=== PATIENT | female | born 1995 | race Caucasian/White ===

== ENCOUNTER 2022-10-31 09:54 | Emergency (ER) | payer BC, SELFPAY ==
--- NOTE | ~2022-10-31 | XR_ITS ---
EXAMINATION: XR thoracic spine 3V DATE: 10/31/2022 11:16 INDICATION: Mid back pain TECHNIQUE: One AP, lateral and lateral swimmer's views of the thoracic spine were obtained. COMPARISON: None. FINDINGS: Alignment is normal. Minimal anterior wedging at T7 and T8. Mild disc height loss with small endplate osteophytes at a few levels in the mid and lower thoracic spine. Visualized portions of the lungs ar e clear. No pleural effusion or pneumothorax. Heart size is normal. IMPRESSION: 1. Mild thoracic spondylosis with minimal anterior wedging at T7 and T8. Reviewed, dictated and finalized at location A.
[2022-10-31 09:59] VITALS: BP 122/71; PULSE 80; RESP 20; TEMP 36.5; O2SAT 100
--- NOTE | 2022-10-31 10:50 | ED.BACK ---
HPI - Back Pain/Injury General Chief Complaint: Back Pain/Injury Stated Complaint: thoracic back pain - pinched nerve Time Seen by Provider: 10/31/22 10:17 Source: patient Mode of arrival: ambulatory Limitations: no limitations History of Present Illness HPI Narrative: This is a 27-year-old female that presents to the emergency department for mid back pain present since this morning. No recent injuries or trauma. The pain is worse with movement and relieved with rest. She took Tylenol this morning with little relief. Reports she was recently on a flight and thinks that her back got stiff from that. Denies fever, chest pain, shortness of breath, exogenous estrogen use, or lower extremity edema. Related Data Allergies Allergy/AdvReac Type Severity Reaction Status Date / Time No Known Allergies Allergy Verified 10/31/22 09:55 Review of Systems Review of Systems: CONSTITUTIONAL: Denies fever CARDIOVASCULAR: Denies chest pain, or edema. RESPIRATORY: Denies dyspnea. SKIN: Denies rash MUSCULOSKELETAL: Reports back pain, joint pain, and myalgia. NEUROLOGIC: Denies numbness, or weakness. All systems reviewed & are unremarkable except as noted in HPI and below PMFSH Past Medical History Medical History Anxiety Surgical History Surgical History H/O wisdom tooth extraction Family History Family History Father Diabetes mellitus Hypertension Depression Heart disease Mother Hypertension Depression Heart disease Social History Social History Smoking status: Never smoker Alcohol intake: never Substance use: never Living arrangements: alone Occupation/Education: occupation Agree to blood products: Yes Exam Narrative: GENERAL: Well-appearing, well-nourished, and in no acute distress. HEAD: Normocephalic, atraumatic. EYES: EOMI. CHEST: Clear to auscultation. No respiratory distress. No wheezes rales or rhonchi HEART: Regular rate and rhythm. No murmur heard. Normal peripheral pulses. BACK: No midline spinal tenderness EXTREMITIES: Normal range of motion. No edema. Strength equal in bilateral upper and lower extremities (5/5) SKIN: Warm, dry, no rash. NEURO: No focal deficits. Alert and oriented x3. PSYCH: Normal mood and affect Course Vital Signs Vital signs: Vital Signs Temperature 97.7 F 10/31/22 09:59 Pulse Rate 80 10/31/22 09:59 Respiratory Rate 20 10/31/22 09:59 Blood Pressure 122/71 10/31/22 09:59 Pulse Oximetry 100 10/31/22 09:59 Oxygen Delivery Room Air 10/31/22 09:59 Temperature 97.7 F 10/31/22 09:59 Pulse Rate 80 10/31/22 09:59 Respiratory Rate 20 10/31/22 09:59 Blood Pressure 122/71 10/31/22 09:59 Pulse Oximetry 100 10/31/22 09:59 Oxygen Delivery Room Air 10/31/22 09:59 MDM - Back Pain/Injury MDM Narrative Medical decision making narrative: Patient presents to the emergency department for mid back pain present since this morning. Reports she had been on a flight and thought this caused her to get stiff. X-ray of her thoracic spine shows mild thoracic spondylosis with minimal anterior wedging at T7 and T8. Patient given dose of Valium and Toradol with improvement. Her pain does seem very musculoskeletal in nature. She is neurologically intact. I do not suspect PE or cardiopulmonary issue at this time. Her heart rate and oxygen saturation are normal. She is not on any exogenous estrogen. Patient instructed to rest, ice and take [id number] pain medication as needed. Will be prescribed muscle relaxer as needed for pain. She is to follow-up with her primary provider. She was given warnings to return to the ER Differential Diagnosis Differential diagnosis: Likely thoracic back
[2022-10-31] MEDS: KETOROLAC 30 MG/ML VIAL (*BKC) IM (11:19)
[2022-10-31] MEDS: diazePAM INJ (*CRX) 10 MG/2 ML SYRINGE 5 MG IM (11:19)
[2022-10-31] MEDS: ACETAMINOPHEN 325 MG TABLET 650 MG PO (12:18)
[2022-10-31] MEDS: HYDROcodone/acetaminophen (*CRX) 5-325 MG TABLET 1 TAB PO (12:18)
--- NOTE | 2022-10-31 13:01 | PC.NURSE ---
Patient states she is unable to get up to be discharged due to pain being too bad . Elizabet made aware and will go speak with patient.
[2022-10-31 13:02] VITALS: BP 134/90; PULSE 66; RESP 15; O2SAT 100
== END 2022-10-31 14:01 | disposition home or self-care (01) ==
PROVIDERS: Emergency Provider Physician Assistant; PCP Physician Assistant Medical
DX: M54.6 Pain in thoracic spine (principal); M47.814 Spondylosis without myelopathy or radiculopathy, thoracic region
CPT/HCPCS: 72072; 96372; 99284; A9270; J1885; J3360

== ENCOUNTER 2025-01-19 10:44 | Emergency (ER) | payer BC, SELFPAY ==
--- NOTE | 2025-01-19 10:48 | ED.URI ---
HPI - URI/Sore Throat General Chief Complaint: Upper Respiratory Infection Stated Complaint: Sinus Infection Time Seen by Provider: 01/19/25 11:00 Source: patient Mode of arrival: ambulatory Limitations: no limitations History of Present Illness HPI Narrative: Layla is a 29-year-old female patient presenting to the clinic today with complaints of a possible sinus infection x4 days. She reports she has nasal drainage, cough, sore throat, left anterior swollen lymph node, and chills. Has taken cough drops to help alleviate her symptoms. Denies any known fever but has felt feverish. Denies any chest pain or shortness of breath. Rates pain 10/29 currently Related Data Allergies Allergy/AdvReac Type Severity Reaction Status Date / Time amoxicillin Allergy Intermediate Swelling Verified 01/19/25 10:58 of Lip/Tongue/Throat Review of Systems Review of Systems: Pertinent positives per HPI. Patient denies any rash, headache, visual changes, dizziness, shortness of breath, chest pain, palpitations, nausea, vomiting, diarrhea, constipation, abdominal pain, or any urinary issues. [facility] Past Medical History Medical History Anxiety Surgical History Surgical History H/O wisdom tooth extraction Family History Family History Father Diabetes mellitus Hypertension Depression Heart disease Mother Hypertension Depression Heart disease Social History Social History Smoking status: Never smoker Alcohol intake: never Substance use: never Living arrangements: alone Occupation/Education: occupation Agree to blood products: Yes Comments At the time of my signature, I reviewed and agree with the nursing past medical, surgical, social, and family history. There is no relevant family history pertinent to the patient complaint. Exam Narrative: General: Well-developed, obese, in no apparent distress Head: Normocephalic, atraumatic Eyes: Pupils equally round and reactive to light bilaterally, EOM intact, sclera and conjunctive clear, no discharge, lids normal Ears: TMs intact and congested, ear canals clear, no drainage, grossly hearing normal. Nose: Nares patent, clear nasal discharge, mild inflammation, no sinus tenderness. Mouth: Oral pharynx red with mild tonsillar without lesions or masses, good dentition, MMM. Postnasal drip Neck: Supple, trachea midline, enlargement of left anterior cervical nodes, no thyroid masses or goiter palpable. Cardio: Regular rate and rhythm, s1 and s2 normal, no murmur appreciated. Resp: Clear to auscultation bilaterally, no rhonchi, rales, wheezing or rubs Course Course Emergency Course: Portions of this record may have been created with voice recognition software. Level of Care: Express Care Visit Vital Signs Vital signs: Vital Signs Temperature 36.9 C 01/19/25 10:53 Pulse Rate 101 H 01/19/25 10:53 Respiratory Rate 20 01/19/25 10:53 Blood Pressure 153/106 H 01/19/25 10:53 Pulse Oximetry 100 01/19/25 10:53 Oxygen Delivery Room Air 01/19/25 10:53 Temperature 36.9 C 01/19/25 10:53 Pulse Rate 101 H 01/19/25 10:53 Respiratory Rate 20 01/19/25 10:53 Blood Pressure 153/106 H 01/19/25 10:53 Pulse Oximetry 100 01/19/25 10:53 Oxygen Delivery Room Air 01/19/25 10:53 Vital signs reviewed MDM - URI/Sore Throat MDM Narrative Medical decision making narrative: At the time of visit patient is resting comfortably on the exam table. Patient appears to be nontoxic. Complaints of a possible sinus infection x4 days. She reports she has nasal drainage, cough, sore throat, left anterior swollen lymph node, and chills. Has taken cough drops to help alleviate her symptoms. Denies any known fever but has felt feverish. Denies any chest pain or shortness of breath. Rates pain 7/10 currently. On exam patient has bilateral TMs intact and congested, clear nasal drainage with oral pharynx red with mild tonsillar enlargement and postnasal drip, left anterior cervical lymphadenopathy, lung sounds are clear, heart rates regular rate and rhythm. COVID, flu, and strep test were ordered. Labs: COVID, influenza, and strep test were all negative. We will send strep for culture. Plan: I suspect patient has URI/pharyngitis/viral syndrome. Work note was given. Supportive measures were discussed with the patient and they voiced understanding discharge instructions and agrees to treatment plan. Return precautions reviewed Differential Diagnosis Differential diagnosis: Likely upper respiratory infection, otitis media, sinusitis, viral infection, bronchitis, influenza, pharyngitis and other (COVID) Lab Data Labs: Lab Results 01/19/25 01/19/25 Range/Units 11:12 11:17 POC Influenza A Ag Negative (Negative) POC Influenza B Ag Negative (Negative) POC SARS CoV-2 Ag Negative (Negative) POC Grp A Strep Screen Negative (Negative) Discharge Plan Discharge Clinical Impression: Viral infection Upper respiratory infection Qualifiers: URI type: unspecified URI Qualified Code(s): J06.9 - Acute upper respiratory infection, unspecified Pharyngitis Qualifiers: Pharyngitis/tonsillitis etiology: unspecified etiology Qualified Code(s): J02.9 - Acute pharyngitis, unspecified Patient Disposition: Home Condition: Stable Instructions: Antibiotic Form, Pharyngitis (ED), Viral Syndrome (ED), Cold Symptoms (ED) Additional Instructions: COVID, influenza, and strep test were all negative in the clinic today. We will send strep for culture. If strep comes back positive we will contact him place you on antibiotics at that time Increase fluids and stay well hydrated May take Tylenol or motrin as directed on bottle for pain/fever May use Flonase 1 spray in each nare daily May take OTC antihistamines such as Zyrtec or Claritin daily as directed on bottle May apply Vicks vapor rub to chest to open sinuses Sinus rinses for congestion Cepacol spray, cough drops, throat lozenges, warm tea with honey/lemon, gargle salt water to soothe throat BRAT diet for diarrhea Clear liquids x 24 hours then advance as tolerated for nausea/vomiting Go to the ED if you develop a worsening in your condition- high fever not controlled by Tylenol or Motrin, dehydration, weakness, lethargy, shortness of breath, or chest pain. Follow up with your PCP in 3-5 days if symptoms persist. Patient Language: Mauritanian Prescriptions: No Action escitalopram oxalate [Lexapro] 20 mg tablet 20 mg PO DAILY Qty: 90 1RF clonazepam 0.5 mg tablet 0.25 mg PO QHS PRN (Reason: anxiety) Qty: 30 0RF Rx Instructions: administer 30 minutes before bedtime Follow-up/Referrals: PHYSICIAN,[employer] OPERATOR [Primary Care Provider, Internal Medicine] Stand Alone Forms: Work/School Release IP Time of Disposition: 11:21 Quality NIHSS Nursing Documentation ED NIHSS nursing documentation: reviewed/agree
[2025-01-19 10:53] VITALS: BP 153/106; PULSE 101; RESP 20; TEMP 36.9; O2SAT 100
--- NOTE | 2025-01-19 10:55 | PC.NURSE ---
Pt. was crying while i was getting her vitals.
[2025-01-19 11:13] LABS: EDCOVIDSCREEN Negative (Negative); EDINFLUASCREEN Negative (Negative); EDINFLUBSCREEN Negative (Negative)
[2025-01-19 11:20] LABS: EDSTREPNEGPOS1 Negative (Negative)
--- OUTSIDE RECORDS SUMMARY | 2025-01-19 11:29 | XMS_ITS | Clinical Summary ---
Author Organization [facility] Address [address] [place] [address] Care Team Providers Care Bowl Topper Name Role Phone Jeffy Hebert MD Primary Care Provider [phone] Source Comments [facility],non-owned Affiliates and Associated Physician Practices is amultiple site organization consisting of ambulatory clinics and hospital sitesin [place], [place], [place] and [place]. This disclosure is being madepursuant to the Care Everywhere program and may not contain all information available regarding this patient. Last updated 18.[facility] Allergies No known active allergies Medications * Be aware that medications may not be up to date on this document. Alwaysverify current medications with the patient. 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 Respiratory Rate 16 06/10/2019 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 Oxygen Saturation 98% 06/10/2019 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 Inhaled Oxygen Concentration - - Weight 90.7 kg (200 lb) 06/10/2019 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 Height 177.8 cm (5' 10) 06/10/2019 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 Body Mass Index 28.7 06/10/2019 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 Plan of Treatment Health Maintenance Due Date Last Done Comments HIV SCREENING 2010 HEPATITIS C SCREENING 03/28/2013 DTAP/TDAP/TD VACCINES (1 - Tdap) 2014 HEPATITIS B VACCINE (1 of 3 - 19+ 3-dose series) 2014 HPV VACCINE (1 - 3-dose SCDM series) 2022 DEPRESSION SCREENING 04/22/2024 COVID-19 VACCINE (1 - 2023-2 5 season) 2024 INFLUENZA VACCINE (#1) 2024 ZOSTER VACCINE (1 of 2) 2045 HIB VACCINE Aged Out No longer eligi ble based on patient's age to complete this topic MENINGOCOCCAL (Group B) VACC INE SHARED DECISION-MAKING Aged Out No longer eligibl e based on patient's age to complete this topic MENINGOCOCCAL GROUPS A/C/Y/W VACCINE Aged Out No longer eligible b ased on patient's age to complete this topic PNEUMOCOCCAL VACCINE Aged Out No long er eligible based on patient's age to complete this topic Insurance FOR[facility]LY [facility], [facility] Care Teams Bowl Topper Relationship Specialty Start Date End Date Jeffy Hebert MD [address] [place] [address] [address] [place] [address] PCP - General Internal Medicine 01/30/18
== END 2025-01-19 11:28 | disposition home or self-care (01) ==
PROVIDERS: Emergency Provider Nurse Practitioner Family
DX: B34.9 Viral infection, unspecified (principal); J06.9 Acute upper respiratory infection, unspecified; J02.9 Acute pharyngitis, unspecified; Z20.822 Contact with and (suspected) exposure to COVID-19; F41.9 Anxiety disorder, unspecified
CPT/HCPCS: 87081; 87426; 87804; 87880; 99213; G0463